=== PATIENT | male | born 1945 | race Caucasian/White ===

== ENCOUNTER → 2019-12-09 | Outpatient (CLI) | payer MEDICARE ==
[~2019-12-09] MED LIST: ALLP100T PO; CPR500T PO; GEMF600T PO; GLUC500C2 PO; HYDR-3714 PO; HYDR-91 PO; HYOS0.1217 PO; LEVO75TA PO; NAPR220T76 PO; NF-VAL40T; NF-VAL40T PO; TAMS0.4C9 PO; VALS1TAB48; VALS1TAB72 PO; thyroid med
--- NOTE | 2019-12-09 11:42 | Diagnostic Imaging Report ---
INDICATION: Pain, redness and swelling to the left great toe. TIME OF EXAM: 11:23 a.m. TECHNIQUE: Three views of the left foot were obtained. FINDINGS: There are some degenerative changes at the first MTP joint. Phalanges appear intact. No bony destructive changes are seen to suggest osteomyelitis. There are no fractures. Metatarsals are unremarkable. Midfoot and hindfoot are unremarkable apart from a plantar calcaneal spur. IMPRESSION: Chronic changes. No acute bony abnormality is detected. Dictated by: Dictated on workstation # [id number]
[2019-12-09 11:43] LABS: MEAN PLATELET VOLUME 10.6 FL (7.4-10.4); WHITE BLOOD COUNT 13.8 10^3/uL (4.3-11.0)
[2019-12-09 12:08] LABS: ALANINE AMINOTRANSFERASE 15 U/L (0-55); ALBUMIN 4.4 GM/DL (3.2-4.5); ALKALINE PHOSPHATASE 70 U/L (40-136); BILIRUBIN,TOTAL 1.3 MG/DL (0.1-1.0); BUN/CREATININE RATIO 19; CARBON DIOXIDE 25 MMOL/L (21-32); CHLORIDE 99 MMOL/L (98-107); CREATININE SERUM 1.14 MG/DL (0.60-1.30); GFR ESTIMATED > 60; GLUCOSE 87 MG/DL (70-105); POTASSIUM 3.5 MMOL/L (3.6-5.0); SODIUM 136 MMOL/L (135-145); TOTAL PROTEIN 8.5 GM/DL (6.4-8.2); URIC ACID 7.3 MG/DL (2.6-7.2)
== END ==
LOC: RAD 11:07
PROVIDERS: ATTEND Physician Assistant
DX: M19.072 Primary osteoarthritis, left ankle and foot (principal); Z87.39 Personal history of other diseases of the musculoskeletal system and connective tissue
CPT/HCPCS: 36415; 73630; 80053; 84550; 85027; 85652; 86141

== ENCOUNTER 2020-10-23 06:00 | Day surgery (SDC) | payer MEDICARE ==
[2020-10-23] VITALS (10 sets, daily range): BP systolic 121–146; BP diastolic 62–79
[~2020-10-23] VITALS: Ht 182.9 cm; Wt 65.5 kg
[2020-10-23] MEDS ORDERED: LACTATED RINGERS 1,000 ML IV PRN (06:15)
[2020-10-23] MEDS ORDERED: ceFAZolin INJECTION 1,000 MG in WATER (STERILE) FOR INJECTION 10 ML IV ONE (06:15)
[2020-10-23] MEDS ORDERED: fentaNYL INJ 100 MCG/2 ML AMP ONE ×2 (06:45→07:18)
[2020-10-23] MEDS ORDERED: fentaNYL INJ 100 MCG/2 ML AMP IV ONE (06:45)
[2020-10-23] MEDS ORDERED: BUPIVACAINE 0.5% 30 ML (SENSORCAINE) VIAL ONE (07:08)
[2020-10-23] MEDS ORDERED: LIDOCAINE 1% INJ 20 ML 20 ML VIAL ONE (07:08)
[2020-10-23] MEDS ORDERED: BUPIVACAINE 0.25% 30 ML (SENSORCAINE) VIAL ONE (07:22)
[2020-10-23] MEDS ORDERED: WATER (STERILE) FOR INJECTION 0 ML ONE (07:23)
[2020-10-23] MEDS ORDERED: ceFAZolin INJECTION 0 MG ONE (07:23)
[2020-10-23] MEDS ORDERED: CLINDAMYCIN 600 MG/50 ML IVPB 50 ML IV ONE (07:44)
--- NOTE | 2020-10-23 07:47 | Progress Note-Pre Operative ---
Pre-Operative Progress Note H&P Reviewed The H&P was reviewed, patient examined and no changes noted. Date Seen by Provider: Oct 23, 2020 Time Seen by Provider: 07:47 Date H&P Reviewed: Oct 23, 2020 Time H&P Reviewed: 07:47 Pre-Operative Diagnosis: Osteoarthritis, left foot KVNG MORGAN DPM Oct 23, 2020 07:47
[2020-10-23] MEDS ORDERED: ONDANSETRON 4 MG/2 ML (SDV) Z0FRAN ONE (08:29)
[2020-10-23] MEDS ORDERED: proPOfol 200 MG/20 ML (DIPRIVAN) VIAL IV ONE (08:29)
[2020-10-23] MEDS ORDERED: LIDOCAINE PF 2% 5 ML (XYLOCAINE) VIAL ONE (08:29)
[2020-10-23] MEDS ORDERED: SEVOFLURANE (ULTANE) 15 ML INHAL SOLN ONE (08:51)
--- NOTE | 2020-10-23 08:57 | Progress Note-Post Operative ---
Post-Operative Progess Note Surgeon (s)/Documentation Coordinator (s) Surgeon KVNG MORGAN DPM Documentation Coordinator: none Pre-Operative Diagnosis Osteoarthritis, left foot Post-Operative Diagnosis same Procedure & Operative Findings Date of Procedure 10/23/20 Procedure Performed/Findings Bone/joint biopsy x2 to LisFranc joint, left Anesthesia Type General Estimated Blood Loss Estimated blood loss (mL): Minimal Specimens/Packing Specimens Removed Bone/joint from the left 2nd metatarsal-cuneoform and 5th metatarsal-cuboid joints Packing: none KVNG MORGAN DPM Oct 23, 2020 08:57
[2020-10-23] MEDS ORDERED: LACTATED RINGERS 1,000 ML IV SCH (09:00)
[2020-10-23] MEDS ORDERED: HYDROcodone/APAP 5 MG/325 MG (LORTAB) TAB PO PRN (09:00)
[2020-10-23] MEDS ORDERED: CLIN150C2 PO (09:01)
[2020-10-23] MEDS ORDERED: ACHD5005 PO (09:01)
--- NOTE | 2020-10-23 09:21 | Anesthesia-General Post-Op ---
General Patient Condition Mental Status/LOC: Same as Preop Cardiovascular: Satisfactory Nausea/Vomiting: Absent Respiratory: Satisfactory Pain: Controlled Complications: Absent Post Op Complications Complications None Follow Up Care/Instructions Patient Instructions None needed. Anesthesia/Patient Condition Patient Condition Patient is doing well, no complaints, stable vital signs, no apparent adverse anesthesia problems. No complications reported per nursing. ALBERTO HOGAN CRNA Oct 23, 2020 09:21
[2020-10-23] MEDS ORDERED: ONDANSETRON 4 MG/2 ML (SDV) Z0FRAN IVP PRN (09:30)
[2020-10-23] MEDS ORDERED: morphine INJ 10 MG/ML 1ML (SYR OR VIAL) IVP ONE (09:30)
[2020-10-23] MEDS ORDERED: fentaNYL INJ 100 MCG/2 ML AMP IVP ONE (09:30)
--- NOTE | 2020-10-23 10:45 | Physical Therapy Ortho Eval ---
PT Orthopedic Evaluation Type of Surgery Bone/joint biopsy x2 to LisFranc joint, left Prior Level of Function Current Living Status: Alone Locomotion (Upon Admit): Independent Established Durable Medical Eq: Straight Cane, Crutches Subjective Subjective Patient in bed pre tx, agrees to PT, has 2/10 pain in left foot. Entry Into Home: Stairs Without Railing Steps Into Home: 2 Motor Control Motor Control: Motor Control WNL Transfer SCALE: Activities may be completed with or without assistive devices. 3-Wfrhffhkjm-zhnhfrc completes the activity by him/herself with no assistance from a helper. 5-Set-up or Clean-up Assistance-helper sets up or cleans up; patient completes activity. Chester assists only prior to or following the activity. 4-Supervision or Touching Assistance-helper provides verbal cues and/or touching/steadying and/or contact guard assistance as patient completes activity. Assistance may be provided throughout the activity or intermittently. 3-Partial/Moderate Assistance-helper does LESS THAN HALF the effort. Chester lifts, holds or supports trunk or limbs, but provides less than half the effort. 2-Substantial/Maximal Assistance-helper does MORE THAN HALF the effort. Chester lifts or holds trunk or limbs and provides more than half the effort. 5-Rnaqenmbx-cprzcp does ALL the effort. Patient does none of the effort to complete the activity. Or, the assistance of 2 or more helpers is required for the patient to complete the activity. If activity was not attempted, code reason: 7-Patient Refused. 9-Not Applicable-not attempted and the patient did not perform the activity before the current illness, exacerbation or injury. 10-Not Attempted due to Environmental Limitations-(lack of equipment, weather restraints, etc.). 88-Not Attempted due to Medical Conditions or Safety Concerns. Transfers (B, C, W/C) (QC): 4 Gait Right Lower Extremity: Right Weight Bearing Status RLE: Full Weight Bearing Left Lower Extremity: Left Weight Bearing Status LLE: Partial Weight Bearing Other Weight Bearing Inst.: Heel contact for the left foot Summary/Comments Patient ambulated 80' with a rolling walker with SBA, he was compliant with maintaining PWB on left leg with just touching heel to floor. Patient also went up and down 1 step using a rolling walker with CGA and discussed going up and down his steps at home with using 1 crutch and handhold on the right side. Treatment Rendered Treatment: Therapeutic Exercises, Gait Train, Step Train Exercise Instruction: Quad Sets, Ankle Pumps Assessment/Goals Goal Time Frame: 1 Visit Understands HEP: Yes Safe Ambulation: Yes Plan Treatment Plan: Discharge PT/Family Agrees to Plan: Yes Time Time In: 1011 Time Out: 1027 Total Billed Treatment Time: 16 Billed Treatment Time 1 visit EVL 16' ILENE JERRY PT Oct 23, 2020 10:45
--- NOTE | 2020-10-23 11:22 | Diagnostic Imaging Report ---
EXAMINATION: Left foot, 2 views. HISTORY: Degenerative disease. COMPARISON: 01/18/2020. FINDINGS: There has been progression of destruction of the tarsometatarsal joints of the 2nd through 5th digits. There is overlying subcutaneous gas and swelling. No acute fracture is seen. There is a heel spur. IMPRESSION: Progressive destruction of the tarsometatarsal joints of the 2nd through 5th digits with overlying soft tissue gas and swelling. While this may be related to recent surgery, correlate for evidence of osteomyelitis. Dictated by: Dictated on workstation # [id number]
--- NOTE | 2020-10-23 16:55 | OPERATIVE REPORT ---
DATE OF SERVICE: 10/23/2020 SURGEON: Karen Morales DPM. 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 PROCEDURE: Bone and joint biopsy of the left second metatarsal cuneiform joint and the left fifth metatarsal cuboid joint. WOUND CLASS: Clean. ANESTHESIA: General. HEMOSTASIS: Pneumatic thigh tourniquet at 250 mmHg. INDICATIONS: This 75-year-old male presents complaining of a painful left mid foot. Conservative therapy has resolved his joint pain. Due to lab work be negative for regular arthritic conditions, a bone biopsy was initiated to further assess the condition of the left Lisfranc's joint. No guarantees were extended to the patient and he is willing to proceed. He understands that he may need further procedures in his future. DESCRIPTION OF PROCEDURE: The patient was brought back to the operating table, placed in secure supine position. General anesthetic was then induced. Appropriate timeout was performed. Attention was then directed to the left foot where utilizing aseptic technique, 10 mL of 1:1 mixture of 1% Xylocaine, 0.5% Marcaine was utilized to inject the surgical sites to the second metatarsal cuneiform joint as well as the fifth metatarsal cuboid joint area. The foot was then prepped and draped in normal sterile manner. The left foot was then elevated, allowed to exsanguinate after which the tourniquet was inflated to 250 mmHg. Attention was then directed to the dorsal aspect of the second metatarsal intermediate cuneiform joint where a 1.5 cm longitudinal linear incision was created. The incision was deepened bluntly through the subcutaneous tissue with great care to avoid any vital neurovascular structures. The incision was deepened down to the capsular tissue where a longitudinal capsulotomy was performed. Underneath this was a yellow cloudy fluid, which a swab culture was taken of this area. Next, utilizing a 3 mm trephine, a bone biopsy and joint biopsy was retrieved and sent for gross and microscopic evaluation. Attention was then directed to the dorsal aspect of the left fifth metatarsal cuboid joint area where once again a 1.5 cm longitudinal linear incision was created. Blunt dissection was carried out through the deep tissue down to the capsular tissue where a longitudinal capsulotomy was performed. Once again, a yellow cloudy material was extruding from the joint space where a swab culture was taken. Separate 3 mm trephine was utilized to retrieve bone from the adjacent bones to the articular cartilage area where no significant cartilage was identified. The bone biopsy and joint material was sent for gross and microscopic evaluation. Next, power irrigation was performed with normal saline to the bone biopsy area. Closure was then performed in layers. Deep closure was performed with 4-0 Vicryl, superficial with 4-0 Vicryl, skin closure with 4-0 Prolene in a horizontal mattress type stitch. Tourniquet was released noting appropriate cap refill time to all digits of the left foot. Postoperative dressing consisted of Betadine soaked Adaptic, sterile 4 x 4, sterile Kerlix all secured with a Coban wrap. The patient tolerated the anesthesia and procedure well, was transported from the operating room to the recovery room with vital signs stable and vascular status intact to all digits of the left foot. He is to be nonweightbearing except for heel contact on the left with crutches. I will see the patient back in approximately 10 days' period of time in the office or sooner if necessary. Job ID: [id number] DocumentID: [id number] Dictated Date: 10/23/2020 09:28:50 Kindergartner Date: 10/23/2020 14:48:31 Dictated By: PEDRO MANZO
== END 2020-10-23 12:19 ==
LOC: SDC 06:00
PROVIDERS: ATTEND Podiatrist Foot & Ankle Surgery
DX: M19.072 Primary osteoarthritis, left ankle and foot (principal); M10.9 Gout, unspecified; I10 Essential (primary) hypertension; C61 Malignant neoplasm of prostate; E78.2 Mixed hyperlipidemia; E03.9 Hypothyroidism, unspecified; Z79.899 Other long term (current) drug therapy
CPT/HCPCS: 73620; 87070; 87075; 87077; 87081; 87101; 87186; 87205; 88304; 88307; 88311

== ENCOUNTER 2020-12-13 08:54 | Outpatient (RCR) | payer MEDICARE ==
--- NOTE | 2020-10-31 14:26 | Diagnostic Imaging Report ---
INDICATION: PICC line placement. COMPARISON: Study of 07/04/2009 FINDINGS: A right PICC catheter has been placed. The tip projects over the junction mid to upper third of the SVC. The lungs are clear. The heart size and pulmonary vascularity are within normal limits. IMPRESSION: The right PICC is in the mid upper SVC without complicating feature or acute abnormality identified. Dictated by: Dictated on workstation # [id number]
[2020-10-31] MEDS: NS IV SCH (14:43)
[2020-10-31] MEDS: DAPTOMYCIN IV SCH (14:43)
[2020-10-31 14:45] LABS: BASOPHILS % (AUTO) 1 % (0-10); EOSINOPHILS # (AUTO) 0.2 10^3/uL (0.0-0.3); EOSINOPHILS % (AUTO) 2 % (0-10); HEMATOCRIT 35 % (40-54); HEMOGLOBIN 10.9 g/dL (13.3-17.7); LYMPHOCYTES # (AUTO) 1.1 10^3/uL (1.0-4.0); LYMPHOCYTES % (AUTO) 18 % (12-44); MEAN CORPUSCULAR HEMOGLOBIN 27 pg (25-34); MEAN CORPUSCULAR HGB CONC 32 g/dL (32-36); MEAN CORPUSCULAR VOLUME 85 fL (80-99); MEAN PLATELET VOLUME 9.5 fL (9.0-12.2); MONOCYTES # (AUTO) 0.4 10^3/uL (0.0-1.0); MONOCYTES % (AUTO) 7 % (0-12); NEUTROPHILS # (AUTO) 4.4 10^3/uL (1.8-7.8); NEUTROPHILS % (AUTO) 71 % (42-75); PLATELET COUNT 310 10^3/uL (130-400); WHITE BLOOD COUNT 6.1 10^3/uL (4.3-11.0)
[2020-10-31 15:04] LABS: ALBUMIN 3.7 GM/DL (3.2-4.5); BILIRUBIN,TOTAL 0.3 MG/DL (0.1-1.0); CREATININE SERUM 0.84 MG/DL (0.60-1.30); POTASSIUM 3.7 MMOL/L (3.6-5.0); TOTAL PROTEIN 7.5 GM/DL (6.4-8.2)
[2020-10-31 15:18] VITALS: BP 138/79
[2020-10-31 15:36] LABS: BASOPHILS % (MANUAL) 1 %; EOSINOPHILS % (MANUAL) 1 %; ERYTHROCYTE SEDIMENTATION RATE 65 MM/HR (0-30); LYMPHOCYTES % (MANUAL) 17 %; MONOCYTES % (MANUAL) 9 %; NEUTROPHILS % (MANUAL) 72 %; RBC MORPH NORMAL
[2020-11-01] MEDS: DAPTOMYCIN IV SCH (09:04)
[2020-11-01] MEDS: NS IV SCH (09:04)
[2020-11-01 09:40] VITALS: BP 132/71
[2020-11-02 09:05] VITALS: BP 121/65
[2020-11-02] MEDS: NS IV SCH (09:12)
[2020-11-02] MEDS: DAPTOMYCIN IV SCH (09:12)
[2020-11-03 09:30] VITALS: BP 133/76
[2020-11-03] MEDS: DAPTOMYCIN IV SCH (09:40)
[2020-11-03] MEDS: NS IV SCH (09:40)
[2020-11-04] MEDS: NS IV SCH (08:45)
[2020-11-04] MEDS: DAPTOMYCIN IV SCH (08:45)
[2020-11-04 09:20] VITALS: BP 135/66
[2020-11-05] MEDS: NS IV SCH (08:40)
[2020-11-05] MEDS: DAPTOMYCIN IV SCH (08:40)
[2020-11-05 09:15] VITALS: BP 137/65
[2020-11-06] MEDS: DAPTOMYCIN IV SCH (09:18)
[2020-11-06] MEDS: NS IV SCH (09:18)
[2020-11-06 09:34] LABS: BASOPHILS % (AUTO) 1 % (0-10); EOSINOPHILS # (AUTO) 0.3 10^3/uL (0.0-0.3); EOSINOPHILS % (AUTO) 6 % (0-10); HEMATOCRIT 36 % (40-54); HEMOGLOBIN 11.5 g/dL (13.3-17.7); LYMPHOCYTES # (AUTO) 1.2 10^3/uL (1.0-4.0); LYMPHOCYTES % (AUTO) 25 % (12-44); MEAN CORPUSCULAR HEMOGLOBIN 27 pg (25-34); MEAN CORPUSCULAR HGB CONC 32 g/dL (32-36); MEAN CORPUSCULAR VOLUME 86 fL (80-99); MEAN PLATELET VOLUME 10.4 fL (9.0-12.2); MONOCYTES # (AUTO) 0.4 10^3/uL (0.0-1.0); MONOCYTES % (AUTO) 9 % (0-12); NEUTROPHILS # (AUTO) 2.8 10^3/uL (1.8-7.8); NEUTROPHILS % (AUTO) 59 % (42-75); PLATELET COUNT 249 10^3/uL (130-400); WHITE BLOOD COUNT 4.8 10^3/uL (4.3-11.0)
[2020-11-06 09:51] LABS: ALBUMIN 3.7 GM/DL (3.2-4.5); BILIRUBIN,TOTAL 0.5 MG/DL (0.1-1.0); CALCIUM 9.4 MG/DL (8.5-10.1); CREATININE SERUM 1.17 MG/DL (0.60-1.30); POTASSIUM 3.8 MMOL/L (3.6-5.0); TOTAL PROTEIN 7.4 GM/DL (6.4-8.2)
[2020-11-06 10:00] VITALS: BP 125/58
[2020-11-06 10:02] LABS: BAND NEUTROPHILS 0 %; BASOPHILS % (MANUAL) 1 %; EOSINOPHILS % (MANUAL) 10 %; LYMPHOCYTES % (MANUAL) 21 %; MONOCYTES % (MANUAL) 9 %; NEUTROPHILS % (MANUAL) 59 %
[2020-11-06 10:03] LABS: RBC MORPH NORMAL
[2020-11-06 10:10] LABS: ERYTHROCYTE SEDIMENTATION RATE 61 MM/HR (0-30)
[2020-11-07 08:45] VITALS: BP 123/67
[2020-11-07] MEDS: DAPTOMYCIN IV SCH (09:11)
[2020-11-07] MEDS: NS IV SCH (09:11)
[2020-11-08 08:59] VITALS: BP 125/88
[2020-11-08] MEDS: DAPTOMYCIN IV SCH (09:22)
[2020-11-08] MEDS: NS IV SCH (09:22)
[2020-11-09] MEDS: NS IV SCH (08:56)
[2020-11-09] MEDS: DAPTOMYCIN IV SCH (08:56)
[2020-11-09 09:03] VITALS: BP 139/68
[2020-11-10] MEDS: NS IV SCH (09:22)
[2020-11-10] MEDS: DAPTOMYCIN IV SCH (09:22)
[2020-11-10 09:26] VITALS: BP 137/66
[2020-11-11] MEDS: NS IV SCH (09:36)
[2020-11-11] MEDS: DAPTOMYCIN IV SCH (09:36)
[2020-11-11 09:58] VITALS: BP 128/65
[2020-11-12] MEDS: NS IV SCH (09:10)
[2020-11-12] MEDS: DAPTOMYCIN IV SCH (09:10)
[2020-11-12 09:21] VITALS: BP 132/69
[2020-11-13 09:06] LABS: BASOPHILS % (AUTO) 1 % (0-10); EOSINOPHILS # (AUTO) 0.4 10^3/uL (0.0-0.3); EOSINOPHILS % (AUTO) 9 % (0-10); HEMATOCRIT 38 % (40-54); HEMOGLOBIN 11.9 g/dL (13.3-17.7); LYMPHOCYTES # (AUTO) 1.4 10^3/uL (1.0-4.0); LYMPHOCYTES % (AUTO) 31 % (12-44); MEAN CORPUSCULAR HEMOGLOBIN 27 pg (25-34); MEAN CORPUSCULAR HGB CONC 32 g/dL (32-36); MEAN CORPUSCULAR VOLUME 87 fL (80-99); MEAN PLATELET VOLUME 10.5 fL (9.0-12.2); MONOCYTES # (AUTO) 0.4 10^3/uL (0.0-1.0); MONOCYTES % (AUTO) 8 % (0-12); NEUTROPHILS # (AUTO) 2.3 10^3/uL (1.8-7.8); NEUTROPHILS % (AUTO) 51 % (42-75); PLATELET COUNT 206 10^3/uL (130-400); WHITE BLOOD COUNT 4.6 10^3/uL (4.3-11.0)
[2020-11-13 09:22] LABS: ALBUMIN 3.9 GM/DL (3.2-4.5)
[2020-11-13 09:24] LABS: CALCIUM 9.2 MG/DL (8.5-10.1)
[2020-11-13] MEDS: DAPTOMYCIN IV SCH (09:24)
[2020-11-13] MEDS: NS IV SCH (09:24)
[2020-11-13 09:25] LABS: TOTAL PROTEIN 7.4 GM/DL (6.4-8.2)
[2020-11-13 09:26] LABS: BILIRUBIN,TOTAL 0.7 MG/DL (0.1-1.0)
[2020-11-13 09:28] LABS: CREATININE SERUM 0.92 MG/DL (0.60-1.30)
[2020-11-13 09:38] LABS: BAND NEUTROPHILS 0 %; BASOPHILS % (MANUAL) 2 %; EOSINOPHILS % (MANUAL) 4 %; LYMPHOCYTES % (MANUAL) 28 %; MONOCYTES % (MANUAL) 6 %; NEUTROPHILS % (MANUAL) 60 %
[2020-11-13 09:39] LABS: ERYTHROCYTE SEDIMENTATION RATE 31 MM/HR (0-30); RBC MORPH NORMAL
[2020-11-13 10:02] VITALS: BP 131/57
[2020-11-14] MEDS: DAPTOMYCIN IV SCH (09:12)
[2020-11-14] MEDS: NS IV SCH (09:12)
[2020-11-14 09:13] VITALS: BP 139/70
[2020-11-15] MEDS: NS IV SCH (07:27)
[2020-11-15] MEDS: DAPTOMYCIN IV SCH (07:27)
[2020-11-15 07:34] VITALS: BP 142/74
[2020-11-16 08:50] VITALS: BP 129/61
[2020-11-16] MEDS: DAPTOMYCIN IV SCH (09:49)
[2020-11-16] MEDS: NS IV SCH (09:49)
[2020-11-17] MEDS: NS IV SCH (09:02)
[2020-11-17] MEDS: DAPTOMYCIN IV SCH (09:02)
[2020-11-17 09:09] VITALS: BP 146/83
[2020-11-18 08:55] VITALS: BP 133/60
[2020-11-18] MEDS: NS IV SCH (09:20)
[2020-11-18] MEDS: DAPTOMYCIN IV SCH (09:20)
[2020-11-19] MEDS: DAPTOMYCIN IV SCH (09:11)
[2020-11-19] MEDS: NS IV SCH (09:11)
[2020-11-19 09:17] VITALS: BP 132/59
[2020-11-20 09:27] LABS: BASOPHILS % (AUTO) 1 % (0-10); EOSINOPHILS # (AUTO) 0.6 10^3/uL (0.0-0.3); EOSINOPHILS % (AUTO) 10 % (0-10); HEMATOCRIT 37 % (40-54); HEMOGLOBIN 11.6 g/dL (13.3-17.7); LYMPHOCYTES # (AUTO) 1.2 10^3/uL (1.0-4.0); LYMPHOCYTES % (AUTO) 20 % (12-44); MEAN CORPUSCULAR HEMOGLOBIN 28 pg (25-34); MEAN CORPUSCULAR HGB CONC 31 g/dL (32-36); MEAN CORPUSCULAR VOLUME 89 fL (80-99); MONOCYTES # (AUTO) 0.4 10^3/uL (0.0-1.0); MONOCYTES % (AUTO) 7 % (0-12); NEUTROPHILS # (AUTO) 3.8 10^3/uL (1.8-7.8); NEUTROPHILS % (AUTO) 63 % (42-75); PLATELET COUNT 176 10^3/uL (130-400); WHITE BLOOD COUNT 6.1 10^3/uL (4.3-11.0)
[2020-11-20] MEDS: NS IV SCH (09:28)
[2020-11-20] MEDS: DAPTOMYCIN IV SCH (09:28)
[2020-11-20 09:49] LABS: ALBUMIN 3.9 GM/DL (3.2-4.5); BILIRUBIN,TOTAL 0.6 MG/DL (0.1-1.0); CALCIUM 9.3 MG/DL (8.5-10.1); CREATININE SERUM 1.02 MG/DL (0.60-1.30); POTASSIUM 4.1 MMOL/L (3.6-5.0); TOTAL PROTEIN 7.1 GM/DL (6.4-8.2)
[2020-11-20 09:57] VITALS: BP 133/64
[2020-11-20 10:00] LABS: ANISOCYTOSIS SLIGHT; BASOPHILS % (MANUAL) 1 %; EOSINOPHILS % (MANUAL) 10 %; ERYTHROCYTE SEDIMENTATION RATE 21 MM/HR (0-30); LYMPHOCYTES % (MANUAL) 26 %; MONOCYTES % (MANUAL) 4 %; NEUTROPHILS % (MANUAL) 59 %
[2020-11-21] MEDS: DAPTOMYCIN IV SCH (08:58)
[2020-11-21] MEDS: NS IV SCH (08:58)
[2020-11-21 09:16] VITALS: BP 145/70
[2020-11-22] MEDS: DAPTOMYCIN IV SCH (09:19)
[2020-11-22] MEDS: NS IV SCH (09:19)
[2020-11-22 09:27] VITALS: BP 149/63
[2020-11-23] MEDS: DAPTOMYCIN IV SCH (08:57)
[2020-11-23] MEDS: NS IV SCH (08:57)
[2020-11-23 09:00] VITALS: BP 132/65
[2020-11-24 08:02] VITALS: BP 131/61
[2020-11-24] MEDS: DAPTOMYCIN IV SCH (08:59)
[2020-11-24] MEDS: NS IV SCH (08:59)
[2020-11-25] MEDS: DAPTOMYCIN IV SCH (09:03)
[2020-11-25] MEDS: NS IV SCH (09:03)
[2020-11-25 09:24] VITALS: BP 159/67
[2020-11-26] MEDS: DAPTOMYCIN IV SCH (09:01)
[2020-11-26] MEDS: NS IV SCH (09:01)
[2020-11-26 09:12] VITALS: BP 133/55
[2020-11-27] MEDS: DAPTOMYCIN IV SCH (09:22)
[2020-11-27] MEDS: NS IV SCH (09:22)
[2020-11-27 09:34] LABS: BASOPHILS # (AUTO) 0.1 10^3/uL (0.0-0.1); BASOPHILS % (AUTO) 1 % (0-10); EOSINOPHILS # (AUTO) 0.7 10^3/uL (0.0-0.3); EOSINOPHILS % (AUTO) 13 % (0-10); HEMATOCRIT 38 % (40-54); HEMOGLOBIN 11.8 g/dL (13.3-17.7); LYMPHOCYTES # (AUTO) 1.2 10^3/uL (1.0-4.0); LYMPHOCYTES % (AUTO) 23 % (12-44); MEAN CORPUSCULAR HEMOGLOBIN 28 pg (25-34); MEAN CORPUSCULAR HGB CONC 31 g/dL (32-36); MEAN CORPUSCULAR VOLUME 90 fL (80-99); MONOCYTES # (AUTO) 0.4 10^3/uL (0.0-1.0); MONOCYTES % (AUTO) 8 % (0-12); NEUTROPHILS % (AUTO) 55 % (42-75); PLATELET COUNT 173 10^3/uL (130-400); WHITE BLOOD COUNT 5.4 10^3/uL (4.3-11.0)
[2020-11-27 09:51] LABS: BILIRUBIN,TOTAL 0.7 MG/DL (0.1-1.0); CALCIUM 9.2 MG/DL (8.5-10.1); CREATININE SERUM 1.16 MG/DL (0.60-1.30); POTASSIUM 4.2 MMOL/L (3.6-5.0); TOTAL PROTEIN 7.2 GM/DL (6.4-8.2)
[2020-11-27 09:55] VITALS: BP 126/59
[2020-11-27 10:02] LABS: ANISOCYTOSIS SLIGHT; BAND NEUTROPHILS 1 %; BASOPHILS % (MANUAL) 2 %; EOSINOPHILS % (MANUAL) 13 %; ERYTHROCYTE SEDIMENTATION RATE 22 MM/HR (0-30); LYMPHOCYTES % (MANUAL) 20 %; MONOCYTES % (MANUAL) 11 %; NEUTROPHILS % (MANUAL) 53 %
[2020-11-28] MEDS: DAPTOMYCIN IV SCH (08:58)
[2020-11-28] MEDS: NS IV SCH (08:58)
[2020-11-28 09:07] VITALS: BP 141/73
[2020-11-29] MEDS: NS IV SCH (09:04)
[2020-11-29] MEDS: DAPTOMYCIN IV SCH (09:04)
[2020-11-29 09:05] VITALS: BP 140/68
[2020-11-30] MEDS: NS IV SCH (08:59)
[2020-11-30] MEDS: DAPTOMYCIN IV SCH (08:59)
[2020-11-30 09:03] VITALS: BP 131/72
[2020-12-01 08:55] VITALS: BP 136/71
[2020-12-01] MEDS: NS IV SCH (09:10)
[2020-12-01] MEDS: DAPTOMYCIN IV SCH (09:10)
[2020-12-02] MEDS: DAPTOMYCIN IV SCH (08:14)
[2020-12-02] MEDS: NS IV SCH (08:14)
[2020-12-02 08:17] VITALS: BP 143/79
[2020-12-03] MEDS: NS IV SCH (08:03)
[2020-12-03] MEDS: DAPTOMYCIN IV SCH (08:03)
[2020-12-03 08:05] VITALS: BP 136/76
[2020-12-04] MEDS: NS IV SCH (09:19)
[2020-12-04] MEDS: DAPTOMYCIN IV SCH (09:19)
[2020-12-04 09:55] VITALS: BP 151/67
[2020-12-05] MEDS: NS IV SCH (08:24)
[2020-12-05] MEDS: DAPTOMYCIN IV SCH (08:24)
[2020-12-05 08:32] LABS: BASOPHILS % (AUTO) 1 % (0-10); EOSINOPHILS # (AUTO) 0.9 10^3/uL (0.0-0.3); EOSINOPHILS % (AUTO) 18 % (0-10); HEMATOCRIT 38 % (40-54); HEMOGLOBIN 11.9 g/dL (13.3-17.7); LYMPHOCYTES # (AUTO) 1.2 10^3/uL (1.0-4.0); LYMPHOCYTES % (AUTO) 25 % (12-44); MEAN CORPUSCULAR HEMOGLOBIN 29 pg (25-34); MEAN CORPUSCULAR HGB CONC 32 g/dL (32-36); MEAN CORPUSCULAR VOLUME 90 fL (80-99); MONOCYTES # (AUTO) 0.5 10^3/uL (0.0-1.0); MONOCYTES % (AUTO) 11 % (0-12); NEUTROPHILS # (AUTO) 2.1 10^3/uL (1.8-7.8); NEUTROPHILS % (AUTO) 45 % (42-75); PLATELET COUNT 173 10^3/uL (130-400); WHITE BLOOD COUNT 4.7 10^3/uL (4.3-11.0)
[2020-12-05 08:52] LABS: ALBUMIN 3.9 GM/DL (3.2-4.5); BILIRUBIN,TOTAL 0.5 MG/DL (0.1-1.0); CALCIUM 8.8 MG/DL (8.5-10.1); CREATININE SERUM 0.86 MG/DL (0.60-1.30); POTASSIUM 3.6 MMOL/L (3.6-5.0); TOTAL PROTEIN 6.8 GM/DL (6.4-8.2)
[2020-12-05 09:14] LABS: BASOPHILS % (MANUAL) 2 %; EOSINOPHILS % (MANUAL) 20 %; ERYTHROCYTE SEDIMENTATION RATE 14 MM/HR (0-30); LYMPHOCYTES % (MANUAL) 28 %; MONOCYTES % (MANUAL) 8 %; NEUTROPHILS % (MANUAL) 42 %; RBC MORPH NORMAL
[2020-12-05 09:15] VITALS: BP 135/70
[2020-12-06] MEDS: DAPTOMYCIN IV SCH (09:01)
[2020-12-06] MEDS: NS IV SCH (09:01)
[2020-12-06 09:24] VITALS: BP 146/66
[2020-12-07] MEDS: DAPTOMYCIN IV SCH (09:00)
[2020-12-07] MEDS: NS IV SCH (09:00)
[2020-12-07 09:30] VITALS: BP 141/70
[2020-12-08 09:02] VITALS: BP 129/68
[2020-12-08] MEDS: DAPTOMYCIN IV SCH (09:09)
[2020-12-08] MEDS: NS IV SCH (09:09)
[2020-12-09] MEDS: NS IV SCH (09:22)
[2020-12-09] MEDS: DAPTOMYCIN IV SCH (09:22)
[2020-12-09 09:54] VITALS: BP 138/73
[2020-12-10] MEDS: NS IV SCH (09:20)
[2020-12-10] MEDS: DAPTOMYCIN IV SCH (09:20)
[2020-12-10 10:01] VITALS: BP 113/84
[2020-12-11 08:45] VITALS: BP 152/73
[2020-12-11] MEDS: DAPTOMYCIN IV SCH (08:56)
[2020-12-11] MEDS: NS IV SCH (08:56)
[2020-12-11 09:13] LABS: BASOPHILS # (AUTO) 0.1 10^3/uL (0.0-0.1); BASOPHILS % (AUTO) 1 % (0-10); EOSINOPHILS # (AUTO) 1.1 10^3/uL (0.0-0.3); EOSINOPHILS % (AUTO) 24 % (0-10); HEMATOCRIT 39 % (40-54); HEMOGLOBIN 12.7 g/dL (13.3-17.7); LYMPHOCYTES # (AUTO) 1.4 10^3/uL (1.0-4.0); LYMPHOCYTES % (AUTO) 29 % (12-44); MEAN CORPUSCULAR HEMOGLOBIN 29 pg (25-34); MEAN CORPUSCULAR HGB CONC 32 g/dL (32-36); MEAN CORPUSCULAR VOLUME 90 fL (80-99); MEAN PLATELET VOLUME 10.9 fL (9.0-12.2); MONOCYTES # (AUTO) 0.4 10^3/uL (0.0-1.0); MONOCYTES % (AUTO) 8 % (0-12); NEUTROPHILS # (AUTO) 1.8 10^3/uL (1.8-7.8); NEUTROPHILS % (AUTO) 38 % (42-75); PLATELET COUNT 202 10^3/uL (130-400); WHITE BLOOD COUNT 4.8 10^3/uL (4.3-11.0)
[2020-12-11 09:22] LABS: ALBUMIN 4.3 GM/DL (3.2-4.5); POTASSIUM 3.9 MMOL/L (3.6-5.0)
[2020-12-11 09:24] LABS: CALCIUM 9.4 MG/DL (8.5-10.1)
[2020-12-11 09:25] LABS: TOTAL PROTEIN 7.5 GM/DL (6.4-8.2)
[2020-12-11 09:27] LABS: BILIRUBIN,TOTAL 0.6 MG/DL (0.1-1.0)
[2020-12-11 09:28] LABS: CREATININE SERUM 0.98 MG/DL (0.60-1.30)
[2020-12-11 09:41] LABS: ERYTHROCYTE SEDIMENTATION RATE 14 MM/HR (0-30)
[2020-12-11 09:47] LABS: ANISOCYTOSIS SLIGHT; BAND NEUTROPHILS 1 %; EOSINOPHILS % (MANUAL) 19 %; LYMPHOCYTES % (MANUAL) 32 %; MONOCYTES % (MANUAL) 4 %; NEUTROPHILS % (MANUAL) 44 %
[2020-12-12] MEDS: NS IV SCH (09:03)
[2020-12-12] MEDS: DAPTOMYCIN IV SCH (09:03)
[2020-12-12 09:35] VITALS: BP 143/71
[~2020-12-13] VITALS: Ht 182 cm; Wt 61.4 kg
[~2020-12-13 08:54] MED LIST changes: +ACHD5005 PO; +CLIN150C2 PO
[2020-12-13 09:02] VITALS: BP 161/71
[2020-12-13] MEDS: DAPTOMYCIN IV SCH (09:02)
[2020-12-13] MEDS: NS IV SCH (09:02)
== END 2020-12-13 09:57 | disposition home or self-care (01) ==
LOC: SDC 08:54
PROVIDERS: ATTEND Internal Medicine Infectious Disease
DX: A49.02 Methicillin resistant Staphylococcus aureus infection, unspecified site (principal); M86.9 Osteomyelitis, unspecified
CPT/HCPCS: 36569; 71045; 76937; 80053; 82550; 85007; 85027; 85652; 96365; C1751; 36415; 96366; 99211

== ENCOUNTER 2021-03-22 08:58 | Outpatient (CLI) | payer MEDICARE ==
[~2021-03-22] VITALS: Ht 182.9 cm; Wt 67.8 kg
[2021-03-22] MEDS ORDERED: LEVO13CA4 PO (10:13)
[2021-03-22] MEDS ORDERED: GEMF600T88 PO (10:13)
[2021-03-22] MEDS ORDERED: TMSL.4C PO (10:13)
[2021-03-22] MEDS ORDERED: VALS1TAB72 PO (10:13)
[2021-03-22] MEDS ORDERED: ALLO100T PO (10:13)
[2021-03-26] MEDS ORDERED: clindamycin (09:47)
[2021-03-26] MEDS ORDERED: ACHD5005 PO (09:47)
== END 2021-03-22 11:24 | disposition home or self-care (01) ==
LOC: PREOP 08:58
PROVIDERS: ATTEND Podiatrist Foot & Ankle Surgery
DX: Z01.818 Encounter for other preprocedural examination (principal)

== ENCOUNTER 2021-03-26 07:39 | Day surgery (SDC) | payer MEDICARE ==
[2021-03-26] VITALS (8 sets, daily range): BP systolic 93–161; BP diastolic 61–82
[~2021-03-26] VITALS: Ht 182.9 cm; Wt 67.8 kg
[~2021-03-26 07:39] MED LIST changes: +ALLO100T PO; +GEMF600T88 PO; +LEVO13CA4 PO; +TMSL.4C PO
[2021-03-26] MEDS ORDERED: PROPOFOL INJECTION 50 ML IV ONE (08:39)
[2021-03-26] MEDS ORDERED: fentaNYL INJ 100 MCG/2 ML AMP ONE (08:39)
[2021-03-26] MEDS ORDERED: LACTATED RINGERS 1,000 ML IV PRN (08:45)
[2021-03-26] MEDS ORDERED: LIDOCAINE 1% INJ 20 ML 20 ML VIAL ONE (08:46)
[2021-03-26] MEDS ORDERED: BUPIVACAINE 0.5% 30 ML (SENSORCAINE) VIAL ONE (08:46)
--- NOTE | 2021-03-26 08:53 | Progress Note-Pre Operative ---
Pre-Operative Progress Note H&P Reviewed The H&P was reviewed, patient examined and no changes noted. Date Seen by Provider: Mar 26, 2021 Time Seen by Provider: 08:52 Date H&P Reviewed: Mar 26, 2021 Time H&P Reviewed: 08:52 Pre-Operative Diagnosis: Pathological Fractures left foot KVNG MORGAN DPM Mar 26, 2021 08:53
[2021-03-26] MEDS ORDERED: CLINDAMYCIN 600 MG/4ML (CLEOCIN) VIAL ONE ×2 (09:33→09:34)
--- NOTE | 2021-03-26 09:43 | Progress Note-Post Operative ---
Post-Operative Progess Note Surgeon (s)/Hot Dog Vendor (s) Surgeon KVNG MORGAN DPM Hot Dog Vendor: none Pre-Operative Diagnosis Pathological Fractures left foot Post-Operative Diagnosis Same Procedure & Operative Findings Date of Procedure 03/26/21 Procedure Performed/Findings Deep Bone biopsy of the Talus, left Deep Bone biospy of the tarsometatarsal joint, left Anesthesia Type MAC Estimated Blood Loss Estimated blood loss (mL): minimal Specimens/Packing Specimens Removed Bone from Talus and LisFranc joints, left KVNG MORGAN DPM Mar 26, 2021 09:42
[2021-03-26] MEDS ORDERED: LACTATED RINGERS 1,000 ML IV SCH (09:45)
[2021-03-26] MEDS ORDERED: HYDROcodone/APAP 5 MG/325 MG (LORTAB) TAB PO PRN (09:45)
[2021-03-26] MEDS ORDERED: clindamycin (09:47)
[2021-03-26] MEDS ORDERED: ACHD5005 PO (09:47)
--- NOTE | 2021-03-26 09:48 | Anesthesia-General Post-Op ---
MAC Patient Condition Mental Status/LOC: Same as Preop Cardiovascular: Satisfactory Nausea/Vomiting: Absent Respiratory: Satisfactory Pain: Controlled Complications: Absent Post Op Complications Complications None Follow Up Care/Instructions Patient Instructions None needed. Anesthesiology Discharge Order Discharge Order Patient is doing well, no complaints, stable vital signs, no apparent adverse anesthesia problems. No complications reported per nursing. MARGOT VENEGAS CRNA Mar 26, 2021 09:48
[2021-03-26] MEDS ORDERED: morphine INJ 10 MG/ML 1ML (SYR OR VIAL) IVP ONE (10:00)
[2021-03-26] MEDS ORDERED: ONDANSETRON 4 MG/2 ML (SDV) Z0FRAN IVP PRN (10:00)
--- NOTE | 2021-03-26 14:18 | Diagnostic Imaging Report ---
INDICATION: Left foot surgery. Fluoroscopy was provided for Dr. Morales for left foot surgery. 5 seconds of fluoroscopic time was utilized. 2 images were obtained. IMPRESSION: Fluoroscopy during left foot surgery. Dictated by: Dictated on workstation # [id number]
--- NOTE | 2021-03-26 14:53 | OPERATIVE REPORT ---
DATE OF SERVICE: 03/26/2021 SURGEON: Karen Morgan DPM PREOPERATIVE DIAGNOSIS: Pathological fractures, left foot. POSTOPERATIVE DIAGNOSIS: Pathological fractures, left foot. PROCEDURES: 1. Deep bone biopsy to the talar neck, left foot. 2. Deep bone biopsy to the Lisfranc joint, left foot. WOUND CLASS: Clean. ANESTHESIA: Monitored anesthesia care. HEMOSTASIS: Pneumatic ankle tourniquet at 250 mmHg. INDICATIONS: This 75-year-old male presents with continued pathological fractures of the left foot. Since his last bone biopsy, the patient was diagnosed with osteomyelitis of the Lisfranc joint, left foot. He subsequently went through a series of IV antibiotics and was doing remarkably better as far as his symptoms are concerned. The patient resumed weightbearing and worked developed pathological fractures with osseous changes noted on x-ray to the talus. To evaluate for further osteomyelitis, the patient is agreeable to surgical intervention after risks and complications were discussed at length. No guarantees were extended to the patient and he is willing to proceed. DESCRIPTION OF PROCEDURE: The patient was brought back to the operating table, placed in secure supine position. Appropriate timeout was performed. Utilizing aseptic technique, 10 mL of 1:1 mixture of 1% Xylocaine, 0.5% Marcaine was injected to the dorsal aspect of the talus. The left lower extremity as well as to the dorsal lateral aspect of the tarsometatarsal joint area. The left foot was then prepped and draped in normal sterile manner. Once the foot was elevated, the tourniquet to the left ankle was inflated to 250 mmHg. Attention was then directed to the dorsal medial aspect of the left talus where utilizing C-arm guided skin incision was made overlying the talar neck. Blunt dissection was carried out down to bone, after which a trocar was introduced a 3 mm in diameter to take a deep bone biopsy. Once this was performed, the bone was sent for gross and microscopic evaluation. A deep swab culture was also taken of this area. There was serous drainage in the area, which was somewhat cloudy. No deep abscess were seen. A second incision was made to the dorsal lateral aspect of the left foot overlying the tarsometatarsal joint area where once again guided by C-arm 0.5 cm vertical incision was made with blunt dissection carried out to the tarsometatarsal joint area. A separate 3 mm trocar was introduced into this area, taking another bone biopsy. This too was sent for gross and microscopic evaluation. A swab culture was taken to evaluate for a potential bacterial or fungal infection. No bogginess was identified. No erythema or proximal streaking at this time. The wounds were flushed with copious amounts of normal saline after which closure was then performed in layers. The skin closure was performed with 4-0 Prolene in a horizontal mattress type stitch to both incisions. Postoperative dressing consisted of Betadine soaked Adaptic, sterile 4 x 4, sterile Kerlix all secured with Coban wrap. The patient tolerated the anesthesia and procedure well, was transported from the operating room to the recovery room with vital signs stable and vascular status intact all digits of the left foot. The patient is to be partial weightbearing with crutches or walker. We will see him back in the office in 10 days' period of time or sooner if necessary. IV clindamycin was ordered postoperatively for the patient. Job ID: [id number] DocumentID: [id number] Dictated Date: 03/26/2021 10:04:56 Tar Processing Technician Date: 03/26/2021 14:51:18 Dictated By: KAREN MORGAN DPM
== END 2021-03-26 11:25 | disposition home or self-care (01) ==
LOC: SDC 07:39
PROVIDERS: ATTEND Podiatrist Foot & Ankle Surgery
DX: M84.475A Pathological fracture, left foot, initial encounter for fracture (principal); I10 Essential (primary) hypertension; E78.5 Hyperlipidemia, unspecified; E03.9 Hypothyroidism, unspecified; Z85.46 Personal history of malignant neoplasm of prostate; Z79.890 Hormone replacement therapy; Z79.899 Other long term (current) drug therapy; Z83.3 Family history of diabetes mellitus
CPT/HCPCS: 76000; 87015; 87070; 87075; 87077; 87081; 87101; 87116; 87186; 87205; 87206

== ENCOUNTER 2021-04-17 05:29 | Outpatient (CLI) | payer MEDICARE ==
[~2021-04-17] VITALS: Ht 182.9 cm; Wt 68.6 kg
[~2021-04-17 05:29] MED LIST changes: +clindamycin
[2021-04-17] MEDS ORDERED: LEVO75TA6 PO (09:35)
== END 2021-04-17 09:36 ==
LOC: PREOP 05:29
PROVIDERS: ATTEND Surgery
DX: Z01.812 Encounter for preprocedural laboratory examination (principal); M86.9 Osteomyelitis, unspecified; U07.1 COVID-19
CPT/HCPCS: 87635

== ENCOUNTER 2021-05-02 09:37 | Inpatient (IN) | payer MEDICARE ==
[~2021-05-02] VITALS: Ht 182.9 cm; Wt 68.6 kg
[2021-05-02] VITALS (9 sets, daily range): BP systolic 97–162; BP diastolic 56–75
[~2021-05-02 09:37] MED LIST changes: +LEVO75TA6 PO
[2021-05-02] MEDS ORDERED: CLINDAMYCIN 600 MG/50 ML IVPB 50 ML IV ONE ×2 (10:00→16:00)
--- NOTE | 2021-05-02 10:20 | Progress Note-Pre Operative ---
Pre-Operative Progress Note H&P Reviewed The H&P was reviewed, patient examined and no changes noted. Time Seen by Provider: 10:16 Date H&P Reviewed: May 02, 2021 Time H&P Reviewed: 10:16 Pre-Operative Diagnosis: Left ankle Osteomyelitis, site marked CRISTOFER SOLARES DO May 02, 2021 10:20
[2021-05-02] MEDS: LACTATED RINGERS 1,000 ML IV PRN ×2 (10:25→13:37)
[2021-05-02] MEDS ORDERED: fentaNYL INJ 100 MCG/2 ML AMP ONE (10:55)
[2021-05-02] MEDS ORDERED: MIDAZOLAM 2 MG/2 ML (VERSED) VIAL ONE (10:55)
[2021-05-02] MEDS ORDERED: LIDOCAINE PF 2% 5 ML (XYLOCAINE) VIAL ONE (10:55)
[2021-05-02] MEDS ORDERED: ROPIVACAINE 5MG/ML 30ML VIAL ONE (10:56)
[2021-05-02] MEDS ORDERED: PROPOFOL INJECTION 50 ML IV ONE ×2 (12:37→13:35)
[2021-05-02] MEDS ORDERED: BUPIVACAINE 0.5% 30 ML (SENSORCAINE) VIAL ONE (12:37)
[2021-05-02] MEDS ORDERED: ONDANSETRON 4 MG/2 ML (SDV) Z0FRAN IVP PRN ×2 (13:45→14:15)
[2021-05-02] MEDS ORDERED: morphine INJ 4 MG/ML 1 ML (VIAL/SYRINGE) IVP PRN (13:45)
--- NOTE | 2021-05-02 14:05 | Anesthesia-Regional Post-Op ---
Regional Patient Condition Mental Status: Alert, Oriented x3 Circulation: Same as Pre-Op Headache: Absent Sensation: Full Recovery Motor Block: Absent Post Op Complications Complications None Follow Up Care/Instructions Patient Instructions None needed. Anesthesia/Patient Condition Patient is doing well, no complaints, stable vital signs, no apparent adverse anesthesia problems. No complications reported per nursing. KRYSTA LUJAN CRNA May 02, 2021 14:05
[2021-05-02] MEDS ORDERED: morphine INJ 10 MG/ML 1ML (SYR OR VIAL) IVP ONE (14:15)
[2021-05-02] MEDS ORDERED: fentaNYL INJ 100 MCG/2 ML AMP IVP ONE (14:15)
[2021-05-02] MEDS ORDERED: MEPERIDINE (DEMEROL) INJ 50 MG/ML IVP ONE (14:15)
[2021-05-02] MEDS: LACTATED RINGERS 1,000 ML IV SCH ×2 (16:06→22:55)
[2021-05-02] MEDS: HYDROcodone/APAP 5 MG/325 MG (LORTAB) TAB PO PRN ×2 (17:51→22:06)
[2021-05-02] MEDS: CLINDAMYCIN 600 MG/50 ML IVPB 50 ML IV SCH (20:07)
[2021-05-02] MEDS: morphine INJ 4 MG/ML 1 ML (VIAL/SYRINGE) IVP PRN (21:30)
--- NOTE | 2021-05-03 00:22 | OPERATIVE REPORT ---
DATE OF SERVICE: 05/02/2021 PREOPERATIVE DIAGNOSIS: Left ankle osteomyelitis and refractory to IV antibiotics. POSTOPERATIVE DIAGNOSIS: Left ankle osteomyelitis and refractory to IV antibiotics, pending pathology. PROCEDURE: Left qlxzh-mko-wvhj amputation. SURGEON: Tanmay Bello DO TECHNOLOGY AUDITOR: Bakari Pretty DO. ANESTHESIA: Spinal block. BLOOD LOSS: Less than 50 mL. FLUIDS: Per anesthesia. POSTOPERATIVE CONDITION: Stable. INDICATION FOR PROCEDURE: The patient is a 75-year-old male, who unfortunately had osteomyelitis developed in his left ankle. He had tried a PICC line in 6 weeks or more of IV antibiotics twice a day, but this did not resolve his osteomyelitis and he needed to, now unfortunately had an amputation. FINDINGS: The patient had a aemiu-kvb-kevd amputation. PROCEDURE NOTE: After informed consent was obtained, the patient was brought to the operating room, placed on the operating table in supine position. He had a tourniquet placed on left upper leg. His lower leg was then shaved with clippers and then sterilely prepped and draped in normal fashion. I started about 10 cm below the tibial plateau. You did a fishmouth incision across the top and then underneath with #10 blade, carried down through the skin into subcutaneous tissue, then deepened down to subcutaneous tissue with Bovie electrocautery, going down through the muscle down on top of the tibia and then going superiorly to get to the spot we would cut the tibia with the Bovie electrocautery as well as the ostial elevator going through the muscle, tying off large vessels and going down underneath as well. Once we got in, the skin pulled away and the tissue elevated off the ostia of the tibia, then used a bone saw to cut through the tibia, cut this off, went through the posterior musculature as well as the nerves and fascia, identifying the large vessels, tying these off with 0 Vicryl and then came up and it took off the fibula about a centimeter or more just above the length of the tibia that we had taken off, so that this would not get in the way. Also again used a bone saw and then once this was done, able to take this distal portion of the leg and removed, passed off the table, let the tourniquet down, found some bleeding. This was controlled with suture ligation. Once we were satisfied that everything was ligated and hemostasis was obtained, I then closed the incision, first closing the muscle and some fascia over the tibia, had also placed some bone wax on the tibia, closed this over with 0 Vicryl suture and then closed the skin and muscle over the bones with #1 Prolene 5 interrupted vertical mattress suture and then closed the skin with german. Area was cleaned and dried, dressing placed. The patient tolerated the procedure. He was transferred to recovery room in stable condition. Sponge, instrument and needle count correct at the end of the case. Dr. Pretty assisted in this case helping to make incisions, close the incision, helped identify anatomy, ligate vasculature, made this case to go faster thereby helping the patient. Job ID: [id number] DocumentID: [id number] Dictated Date: 05/02/2021 16:22:18 Envelope Press Operator Date: 05/03/2021 00:22:03 Dictated By: TANMAY BELLO DO
[2021-05-03] MEDS: morphine INJ 4 MG/ML 1 ML (VIAL/SYRINGE) IVP PRN ×2 (02:08→09:41)
[2021-05-03] MEDS: CLINDAMYCIN 600 MG/50 ML IVPB 50 ML IV SCH (03:38)
[2021-05-03] MEDS: HYDROcodone/APAP 5 MG/325 MG (LORTAB) TAB PO PRN ×5 (03:38→20:22)
[2021-05-03 04:22] VITALS: BP 135/73
[2021-05-03] MEDS: LACTATED RINGERS 1,000 ML IV SCH (07:47)
[2021-05-03 08:00] VITALS: BP 140/61
[2021-05-03] MEDS: PANTOPRAZOLE 40 MG (PROTONIX) VIAL IVP SCH (08:16)
--- NOTE | 2021-05-03 08:21 | Progress Note - Surgery ---
[facility] 05/03/21 0821: Subjective Date Seen by a Provider: May 03, 2021 Time Seen by a Provider: 08:15 Subjective/Events-last exam POD1, S/P L BKA No acute events overnight, patient remains afebrile Currently having difficulty adjusting to ADL's with one lower extremity Reports incisional pain, but is controlled with pain medication Takes Valsartan at home, and chart blood pressure recorded as 135/73 Review of Systems General: No Chills, No Other (Fevers) Pulmonary: No Dyspnea, No Cough Cardiovascular: No: Chest Pain, Palpitations Gastrointestinal: No: Nausea, Vomiting, Abdominal Pain Objective Exam Vital Signs Date Time Temp Pulse Resp B/P (MAP) Pulse Ox O2 Delivery O2 Flow Rate FiO2 05/03/21 04:22 36.8 76 18 135/73 (93) 98 Room Air 05/03/21 04:08 36.8 05/03/21 02:38 37.0 05/02/21 23:43 37.0 78 16 149/68 (95) 98 Room Air 05/02/21 22:36 37.4 05/02/21 22:00 37.4 05/02/21 20:00 37.4 72 18 162/72 (102) 100 Room Air 05/02/21 19:45 99 Room Air 05/02/21 16:28 35.9 56 18 132/56 (81) 99 Room Air 05/02/21 14:50 99 Room Air 2.00 05/02/21 14:45 Room Air 05/02/21 14:40 36.4 14 118/64 (82) 100 Room Air 05/02/21 14:30 Room Air 05/02/21 14:30 15 111/62 (78) 100 Room Air 05/02/21 14:20 14 103/64 (77) 100 Room Air 05/02/21 14:10 OxyMask 2 05/02/21 14:05 16 98/60 (73) 100 OxyMask 2 05/02/21 13:50 36.2 16 97/56 (70) 100 OxyMask 4 05/02/21 13:50 OxyMask 4 05/02/21 11:27 36.3 108 18 149/75 (99) Room Air I & O 05/03/21 07:00 Intake Total 3040 ml Balance 3040 ml Capillary Refill : General Appearance: No Apparent Distress, WD/WN HEENT: PERRL/EOMI, Pharynx Normal Neck: Non Tender, Supple Respiratory: Chest Non Tender, Lungs Clear, Normal Breath Sounds, No Accessory Muscle Use, No Respiratory Distress Cardiovascular: Regular Rate, Rhythm, No Murmur Peripheral Pulses: 2+ Radial Pulses (R), 2+ Radial Pulses (L) Gastrointestinal: non tender, soft Extremity: Non Tender (in RLE), No Calf Tenderness (in RLE), Other (Left BKA, wrapped in dressings, tenderness to palpation) Neurologic/Psychiatric: Alert, Oriented x3, Normal Mood/Affect Lymphatic: No Adenopathy Assessment/Plan Assessment/Plan Assessment/Plan S/P Left BKA - Continue current pain regimen - Lovenox ordered for 10:15 today, continue DVT prophylaxis with SCD - Consult PT/OT for ADLs - Continue dressing changes as needed HTN - Restart blood pressure medication TANMAY BELLO DO 05/03/21 1321: Subjective Time Seen by a Provider: 11:51 Subjective/Events-last exam Pt seen and examined, states his pain is much better controlled today. Nurse states he hopped to bathroom yesterday with walker. Tolerating diet. Review of Systems General: No Chills Pulmonary: No Dyspnea, No Cough Cardiovascular: No: Chest Pain, Palpitations Gastrointestinal: No: Nausea, Vomiting, Abdominal Pain Musculoskeletal: leg pain Objective Exam General Appearance: No Apparent Distress, Thin HEENT: PERRL/EOMI Respiratory: Chest Non Tender, Lungs Clear, Normal Breath Sounds, No Accessory Muscle Use, No Respiratory Distress Cardiovascular: Regular Rate, Rhythm, No Murmur Gastrointestinal: non tender, soft Extremity: Other (Left BKA, wrapped in dressings, tenderness to palpation) Assessment/Plan Assessment/Plan Assessment/Plan S/P Left BKA - Continue current pain regimen - Lovenox ordered for 10:15 today, continue DVT prophylaxis with SCD - Consult PT/OT for ADLs - Continue dressing changes as needed HTN -Will hold blood pressure medication while pt is normotensive Supervisory-Addendum Brief Verification & Attestation Participated in pt care: history, MDM, physical Personally performed: exam, history, MDM, supervision of care Care discussed with: Medical Student Procedures: n/a Verification and Attestation of Medical Student E/M Service A medical student performed and documented this service. I then reviewed and verified all information documented by the medical student and made modifications to such information, when appropriate. I personally performed a p hysical exam, medical decision making and then discussed any differences between the notes and made revisions as necessary to create one note. Tanmay Bello , 05/03/21 , 13:21 [facility] May 03, 2021 08:21 TANMAY BELLO DO May 03, 2021 13:21
[2021-05-03 12:00] VITALS: BP 144/41
--- NOTE | 2021-05-03 14:09 | Physical Therapy Evaluation ---
PT Evaluation-General Medical Diagnosis Admission Date May 02, 2021 at 09:37 Medical Diagnosis: left BKA Onset Date: May 02, 2021 Therapy Diagnosis Therapy Diagnosis: independent with mobility Height/Weight Height (Feet): 5 Height (Inches): 11.00 Weight (Pounds): 165 Precautions Precautions/Isolations: Fall Prevention, Standard Precautions Referral Physician: Eugenia Reason for Referral: Evaluation/Treatment Medical History Pertinent Medical History: HTN Reviewed History: Yes Social History Current Living Status: Alone Entry Into Home: Stairs With Railing PT Steps Into Home: 2 Prior Prior Level of Function SCALE: Activities may be completed with or without assistive devices. 8-Ogzybkuvks-snecvmf completes the activity by him/herself with no assistance from a helper. 5-Set-up or Clean-up Assistance-helper sets up or cleans up; patient completes activity. [place] assists only prior to or following the activity. 4-Supervision or Touching Assistance-helper provides verbal cues and/or touching/steadying and/or contact guard assistance as patient completes activity. Assistance may be provided throughout the activity or intermittently. 3-Partial/Moderate Assistance-helper does LESS THAN HALF the effort. [place] lifts, holds or supports trunk or limbs, but provides less than half the effort. 2-Substantial/Maximal Assistance-helper does MORE THAN HALF the effort. [place] lifts or holds trunk or limbs and provides more than half the effort. 4-Ccapfxorn-tguxin does ALL the effort. Patient does none of the effort to complete the activity. Or, the assistance of 2 or more helpers is required for the patient to complete the activity. If activity was not attempted, code reason: 7-Patient Refused. 9-Not Applicable-not attempted and the patient did not perform the activity before the current illness, exacerbation or injury. 10-Not Attempted due to Environmental Limitations-(lack of equipment, weather restraints, etc.). 88-Not Attempted due to Medical Conditions or Safety Concerns. Bed Mobility: 6 Transfers (B,C,W/C): 6 Gait: 6 Stairs: 6 Indoor Mobility (Ambulation): Independent Stairs: Independent Prior Device Use: SPC PT Evaluation-Current Subjective Patient in bed pre tx, agrees to PT, has 2/10 pain in left residual limb Pt/Family Goals to be independent at home Objective Patient Orientation: Person, Place, Situation ROM/Strength ROM Lower Extremities WNL Strength Lower Extremities LLE (hip flexion 4+/5), RLE (hip flexion 4+/5, knee flexion 5/5, knee extension 5/5, dorsiflexion 4+/5) Sensory Vision: Wears Glasses Hearing: Functional Sensation Right Lower Extremit: Intact Sensation Left Lower Extremity: Intact Transfers Roll Left to Right (QC): 6 Sit to Lying (QC): 6 Lying to Sitting/Side of Bed(Q: 6 Sit to Stand (QC): 6 Chair/Zno-vj-Lwmgw Xfer(QC): 6 Gait Does the Patient Walk?: Yes Mode of Locomotion: Walk Anticipated Mode of Locomotion: Walk Walk 10 feet (QC): 6 Walk 50 ft with 2 Turns(QC): 6 Distance: 50' Gait Assistive Device: FWW Comments/Gait Description Patient ambulates independently using a rolling walker, no LOB or unsteadiness Balance Sitting Static: Normal Sitting Dynamic: Normal Standing Static: Normal Standing Dynamic: Normal Treatment Educated patient on maintaining LLE ROM to prepare of prosthetic leg Assessment/Needs Patient is independent with mobility, will DC from PT services at this time Rehab Potential: Good PT Plan Treatment/Plan Treatment Plan: Discontinue PT Treatment Duration: May 03, 2021 Frequency: Patient and/or Family Agrees t: Yes Safety Risks/Education Patient Education: Gait Training, Transfer Techniques, Correct Positioning, Safety Issues Teaching Recipient: Patient Teaching Methods: Demonstration, Discussion Response to Teaching: Reinforcement Needed Discharge Recommendations Plan DC Therapy Discharge Recommendati: Home & Family Time/GCodes Time In: 1348 Time Out: 1400 Total Billed Treatment Time: 12 Total Billed Treatment 1 visit EV ILENE IPSANO PT May 03, 2021 14:09
[2021-05-03 16:00] VITALS: BP 142/64
[2021-05-03 20:00] VITALS: BP 126/65
[2021-05-04 00:20] VITALS: BP 148/67
[2021-05-04] MEDS: HYDROcodone/APAP 5 MG/325 MG (LORTAB) TAB PO PRN ×4 (00:20→15:31)
[2021-05-04 04:31] VITALS: BP 144/68
--- NOTE | 2021-05-04 06:56 | Progress Note - Surgery ---
[facility]YR[facility] KE[facility] 05/04/21 0656: Subjective Date Seen by a Provider: May 04, 2021 Time Seen by a Provider: 06:51 Subjective/Events-last exam POD2, S/P L BKA No acute events overnight, patient remains afebrile States he is experiencing phantom pains. This occurs when he performs movements that would move his ankles and toes Pain med is making pain tolerable. Rates it as a 2-3 with the pain medication Review of Systems General: No Chills, No Other (fevers) Pulmonary: No Dyspnea, No Cough Cardiovascular: No: Chest Pain, Palpitations Gastrointestinal: No: Nausea, Vomiting, Abdominal Pain Objective Exam Vital Signs Date Time Temp Pulse Resp B/P (MAP) Pulse Ox O2 Delivery O2 Flow Rate FiO2 05/04/21 05:00 36.9 05/04/21 04:31 36.9 70 20 144/68 (93) 97 Room Air 05/04/21 04:30 36.8 05/04/21 00:50 36.9 05/04/21 00:20 36.3 80 18 148/67 (94) 100 Room Air 05/04/21 00:20 36.8 05/03/21 20:22 36.8 05/03/21 20:00 37.0 75 18 126/65 (85) 98 Room Air 05/03/21 19:50 99 Room Air 05/03/21 16:00 36.8 72 18 142/64 (90) 100 Room Air 05/03/21 15:57 Room Air 0.00 05/03/21 12:00 35.8 74 18 144/41 (75) 98 Room Air 05/03/21 08:31 Room Air 05/03/21 08:00 35.8 74 18 140/61 (87) 99 Room Air I & O 05/04/21 07:00 Intake Total 2400 ml Output Total 411 ml Balance 1989 ml Capillary Refill : General Appearance: No Apparent Distress, Thin HEENT: PERRL/EOMI, Moist Mucous Membranes Neck: Non Tender, Supple Respiratory: Chest Non Tender, Lungs Clear, Normal Breath Sounds, No Accessory Muscle Use, No Respiratory Distress Cardiovascular: Regular Rate, Rhythm, No Murmur Peripheral Pulses: 2+ Radial Pulses (R), 2+ Radial Pulses (L) Gastrointestinal: non tender, soft Extremity: No Calf Tenderness (in RLE), Other (Left BKA, wrapped in dressings) Neurologic/Psychiatric: Alert, Oriented x3, Normal Mood/Affect Lymphatic: No Adenopathy Results Lab Microbiology 05/02/21 MRSA Screen - Final, Complete MRSA not isolated Assessment/Plan Assessment/Plan Assessment/Plan S/P Left BKA - Continue current pain regimen - continue DVT prophylaxis with SCD - PT stated patient was independent - Continue dressing changes as needed - Okay to discharge after patient is seen by prosthetics HTN -Will hold blood pressure medication while pt is normotensive TANMAY BELLO DO 05/04/21 1111: Subjective Time Seen by a Provider: 10:15 Subjective/Events-last exam Pt seen and examined, no new complaints and pain controlled. Review of Systems General: No Chills Pulmonary: No Dyspnea, No Cough Cardiovascular: No: Chest Pain, Palpitations Gastrointestinal: No: Nausea, Vomiting, Abdominal Pain Objective Exam General Appearance: No Apparent Distress, Thin Respiratory: Lungs Clear, Normal Breath Sounds, No Accessory Muscle Use, No Respiratory Distress Cardiovascular: Regular Rate, Rhythm, No Murmur Gastrointestinal: non tender, soft Extremity: No Calf Tenderness (in RLE), Other (Left BKA, wrapped in dressings) Neurologic/Psychiatric: Alert, Oriented x3 Assessment/Plan Assessment/Plan Assessment/Plan S/P Left BKA - Continue current pain regimen - PT stated patient was independent - Continue dressing changes as needed - Okay to discharge after patient is seen by prosthetics HTN -Pt to restart blood pressure medication at home Supervisory-Addendum Brief Verification & Attestation Participated in pt care: history, MDM, physical Personally performed: exam, history, MDM, supervision of care Care discussed with: Medical Student Procedures: n/a Verification and Attestation of Medical Student E/M Service A medical student performed and documented this service. I then reviewed and verified all information documented by the medical student and made modifications to such information, when appropriate. I personally performed a physical exam, medical decision making and then discussed any differences between the notes and made revisions as necessary to create one note. Tanmay Bello , 05/04/21 , 11:[address] [facility] May 04, 2021 06:56 TANMAY BELLO DO May 04, 2021 11:11
[2021-05-04 08:00] VITALS: BP 130/66
[2021-05-04] MEDS: PANTOPRAZOLE 40 MG (PROTONIX) VIAL IVP SCH (08:44)
[2021-05-04] MEDS ORDERED: ACHD5005 PO (11:07)
--- NOTE | 2021-05-04 11:09 | Discharge Inst-Surgical ---
Discharge Inst-Surgical Depart Medication/Instructions New, Converted or Re-Newed RX: Transmitted to Pharmacy Patient Instructions Follow up Appt: Make appointment for 1 week. [phone] Instructions: No lifting greater than 20 pounds. No strenuous activity. May shower in 24 hours, no tub bath or soaking. Use incentive spirometer at home as directed. No Smoking Skin/Wound Care: May remove bandages in am. You need to leave the german in place and come in to have them removed. Symptoms to Report: Appetite Changes, Extremity Discoloration, Numbness/Tingling, Swelling Increased, Bleeding Excessive, Eyesight Changes, Pain Increased, Urine Color Change, Constipation(Persistent), Fever over 101 degree F, Pain/Pressure in chest, Urinating Difficulty, Cough Up/Vomit Blood, Heart Beat Irreg/Pounding, Pain/Pressure in jaw, Cramps in feet or legs, Lightheadedness, Pain/Pressure in shoulder, Diarrhea(Persistent), Memory Changes Suddenly, Questions/Concerns, Weight gain consecutive days, Dizziness/Fainting, Nausea/Vomiting, Shortness of Breath, Weight gain over 2 pounds If questions or concerns contact your physician Or seek help at emergency department. Activity Activity as Tolerated: Yes Walking Assistive Device: Walker Driving Instructions: No Driving/Refer to Dr. Vallejo Discharge Diet: No Restrictions Diet After 24 Hours: Clear Liquid if Nauseous If Any Problems/Questions/Issu: Contact Your Physician, Go to Emergency Room Skin/Wound Care Infection Signs and Symptoms: Increased Redness, Foul Odor of Wound, Increased Drainage, Skin Itchy or Has a Rash, Increased Swelling, Temperature Above 101 F Bathing Instructions: Shower Stitches/[place]/Dermabond Dis: Care of CRISTOFER Diamond DO May 04, 2021 11:08
[2021-05-04] MEDS: morphine INJ 4 MG/ML 1 ML (VIAL/SYRINGE) IVP PRN (12:19)
[2021-05-04 12:45] VITALS: BP 135/65
[2021-05-04 18:01] VITALS: BP 135/65
== END 2021-05-04 16:30 | disposition home or self-care (01) | DRG 476 ==
LOC: 4TH 09:37 → SURG 09:39 → 4TH 14:50
PROVIDERS: ADMIT Surgery; ATTEND Surgery
PROC: 0Y6J0Z3 Detachment at Left Lower Leg, Low, Open Approach (ICD-10-PCS; principal; 2021-05-02 12:21)
DX: M86.8X7 Other osteomyelitis, ankle and foot (principal); I10 Essential (primary) hypertension; E03.9 Hypothyroidism, unspecified
CPT/HCPCS: 87081